=== PATIENT | female | born 1975 | race Hispanic/Latino ===

== ENCOUNTER 2016-10-26 22:09 | Emergency (ER) | payer BC ==
[2016-10-26 22:19] VITALS: BMI 29.2
[2016-10-26 22:21] VITALS: BP 136/86; PULSE 90; RESP 16; TEMP 98; O2SAT 100
--- NOTE | 2016-10-26 22:55 | ED PDOC ---
HPI: Skin/Bite Injury Time Seen by Provider: 10/26/16 22:11 Chief Complaint (Nursing): Abnormal Skin Integrity Chief Complaint (Provider): Insect bite, right face (at 3am) History Per: Patient History/Exam Limitations: no limitations Onset/Duration Of Symptoms: Hrs Current Symptoms Are (Timing): Still Present Quality Of Symptoms: Painful, Itching Severity: Mild Additional Complaint(s): Pt reports waking up at 3am to something pinching her face. Pt states when she got up there was a spider that fell off her. PT brought spider to ER. The Spider does not appear to have any markings consistent with brown recluse or black . Past Medical History Reviewed: Historical Data, Nursing Documentation, Vital Signs Vital Signs: Last Vital Signs Temp 98.0 F 10/26/16 22:19 Pulse 90 10/26/16 22:19 Resp 16 10/26/16 22:19 BP 136/86 10/26/16 22:19 Pulse Ox 100 10/26/16 22:19 - Medical History PMH: No Chronic Diseases - Surgical History Surgical History: No Surg Hx - Family History Family History: States: Unknown Family Hx - Living Arrangements Living Arrangements: With Family - Social History Current smoker - smoking cessation education provided: No - Home Medications Home Medications: Ambulatory Orders Medication Instructions Recorded Pantoprazole Sodium [Protonix] 40 mg PO DAILY #30 tablet. 05/31/16 DiphenhydrAMINE [Benadryl] 50 mg PO Q6H PRN #20 cap 10/26/16 Sulfamethoxazole/Trimethoprim 1 each PO BID #20 tablet 10/26/16 [Bactrim 400-80 mg Tablet] predniSONE [predniSONE Tab] 20 mg PO DAILY #12 tab 10/26/16 - Allergies Allergies/Adverse Reactions: Allergies Allergy/AdvReac Type Severity Reaction Status Date / Time No Known Allergies Allergy Verified 10/26/16 22:18 Review of Systems ROS Statement: Except As Marked, All Systems Reviewed And Found Negative Skin: Positive for: Other Physical Exam - Reviewed Nursing Documentation Reviewed: Yes Vital Signs Reviewed: Yes - Physical Exam Appears: Positive for: Well, Non-toxic, No Acute Distress Head Exam: Positive for: ATRAUMATIC, NORMAL INSPECTION, NORMOCEPHALIC Skin: Positive for: Warm. Negative for: Normal Color ((+) small red area on the right face, (+) blanching, (-) warmth, (+) tenderness ) Eye Exam: Positive for: Normal appearance ENT: Positive for: Normal ENT Inspection Neck: Positive for: Normal, Painless ROM Respiratory: Negative for: Accessory Muscle Use, Respiratory Distress Back: Positive for: Normal Inspection Extremity: Positive for: Normal ROM Neurologic/Psych: Positive for: Alert, Oriented - ECG O2 Sat by Pulse Oximetry: 100 Disposition - Clinical Impression Clinical Impression: Insect bite - Disposition Referrals: [facility] [Outside] Disposition: Routine/Home Disposition Time: 22:50 Condition: GOOD Prescriptions: DiphenhydrAMINE [Benadryl] 50 mg PO Q6H PRN #20 cap PRN Reason: Itching / Pruritus predniSONE [predniSONE Tab] 20 mg PO DAILY #12 tab Sulfamethoxazole/Trimethoprim [Bactrim 400-80 mg Tablet] 1 each PO BID #20 tablet Instructions: Insect Bite or Sting (ED)
== END 2016-10-26 23:12 | disposition home or self-care (01) ==
LOC: H.ER 22:09
DX: T14.8 Other injury of unspecified body region (principal); W57.XXXA Bitten or stung by nonvenomous insect and other nonvenomous arthropods, initial encounter; Y92.89 Other specified places as the place of occurrence of the external cause